=== PATIENT | male | born 1990 | race African-American/Black ===

== ENCOUNTER 2016-10-15 18:55 | Emergency (ER) | payer OTHER ==
[2016-10-15 20:32] VITALS: BP 135/74; PULSE 68; RESP 16; TEMP 97.4
--- NOTE | 2016-10-15 20:35 | ED ---
General Adult HPI - General Chief complaint: Neck Pain/Injury Stated complaint: Head injury on Friday/ feels nausea Time Seen by Provider: 10/15/16 20:23 Source: patient, RN notes reviewed Mode of arrival: ambulatory Limitations: no limitations - History of Present Illness Initial comments: Patient is 25-year-old male with chief complaint of headache and dizziness for the past day. Patient reports that on Friday he was out drinking and missed a step and fell and hit his head. He also reports of some neck pain as well. He denies any loss of consciousness, abnormal mental status or neurological deficits. Patient reports that it is felt slightly tired. 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 ROS Other: All systems not noted in ROS Statement are negative. Past Medical History Past Medical History: No Reported History History of Any Multi-Drug Resistant Organisms: None Reported Past Surgical History: No Surgical Hx Reported Past Psychological History: Anxiety, Bipolar, Depression Smoking Status: Current every day smoker Past Alcohol Use History: Occasional Past Drug Use History: None Reported General Exam - General Exam Comments Initial Comments: Patient is a well-appearing alert and oriented [id number] male. He does not appear to be in any acute distress. Limitations: no limitations General appearance: alert, in no apparent distress Head exam: Present: atraumatic, normocephalic, normal inspection Eye exam: Present: normal appearance, PERRL, EOMI. Absent: scleral icterus, conjunctival injection, periorbital swelling ENT exam: Present: normal exam, mucous membranes moist Neck exam: Present: normal inspection, tenderness (posterior cervical). Absent : meningismus, lymphadenopathy Respiratory exam: Present: normal lung sounds bilaterally. Absent: respiratory distress, wheezes, rales, rhonchi, stridor Cardiovascular Exam: Present: regular rate, normal rhythm, normal heart sounds. Absent: systolic murmur, diastolic murmur, rubs, gallop, clicks GI/Abdominal exam: Present: soft, normal bowel sounds. Absent: distended, tenderness, guarding, rebound, rigid Extremities exam: Present: normal inspection, full ROM, normal capillary refill. Absent: tenderness, pedal edema, joint swelling, calf tenderness Back exam: Present: normal inspection Neurological exam: Present: alert, oriented X3, CN II-XII intact Psychiatric exam: Present: normal affect, normal mood Skin exam: Present: warm, dry, intact, normal color. Absent: rash Course Vital Signs 10/15/16 10/15/16 18:58 20:14 Temperature 97.9 F 97.4 F L Pulse Rate 85 68 Respiratory 17 16 Rate Blood Pressure 145/83 135/74 O2 Sat by Pulse 100 99 Oximetry Medical Decision Making - Medical Decision Making Patient is a 25 year old male with post concussion symptoms including nausea, and fogginess 4 days after falling and hitting his head. Patient has no neurological deficits. Patient cervical spine is negative for any acute process. Patient given Rx for zofran for nausea. Patient understands treatment plan and will comply. Return parameters discussed. - Radiology Data Radiology results: report reviewed cervical spine is negative for any acute process. Disposition Clinical Impression: Concussion, Strain of neck muscle Disposition: HOME SELF-CARE Condition: Good Instructions: Cervical Strain (ED), Concussion (ED) Additional Instructions: Patient denies any nausea medication as directed. Follow-up with her primary care provider. Rest, increase fluids and return to the [facility] if any alarming signs or symptoms occur. Prescriptions: Ondansetron [Zofran] 4 mg PO Q8HR PRN #8 tab PRN Reason: Nausea And Vomiting Referrals: Livan Brown MD [REFERRING] - 1-2 days Time of Disposition: 21:31
--- NOTE | 2016-10-15 21:19 | XR ---
EXAMINATION TYPE: XR cervical spine comp DATE OF EXAM: 10/15/2016 8:53 PM COMPARISON: NONE HISTORY: Neck pain TECHNIQUE: Single view FINDINGS: Cervical vertebra have normal spacing and alignment. Posterior elements are intact. Prevert ebral soft tissues appear normal. IMPRESSION: Normal cervical spine Limited exam.
== END 2016-10-15 21:47 | disposition home or self-care (01) ==
LOC: EC 18:55
DX: S06.0X0A Concussion without loss of consciousness, initial encounter (principal); S16.1XXA Strain of muscle, fascia and tendon at neck level, initial encounter; W10.9XXA Fall (on) (from) unspecified stairs and steps, initial encounter; Z91.013 Allergy to seafood; F17.200 Nicotine dependence, unspecified, uncomplicated
CPT/HCPCS: 72050; 99283